=== PATIENT | male | born 1990 | race Two or more races ===

== ENCOUNTER 2017-02-28 07:16 | Inpatient (IN) | payer MEDICAID, OTHER ==
[2017-02-28] MEDS ORDERED: NS 1,000 ML IV ONE ×2 (07:19→10:15)
[2017-02-28] MEDS ORDERED: ONDANSETRON 4 MG/2 ML VIAL IVP ONE (07:19)
[2017-02-28] MEDS ORDERED: HYDROmorphONE/DILAUDID 1 MG/ML SYR IVP ONE (07:19)
[2017-02-28 07:29] LABS: % IMMATURE GRANULYOCYTES 0.6 % (0.0-1.1); ABSOLUTE IMMATURE GRANULOCYTES 0.15 10^3/uL (0.00-0.10); ADD DIFF? NO; ADD MORPH? NO; ADD SCAN? NO; ATYPICAL LYMPHOCYTE FLAG 0 (0-99); FRAGMENT RBC FLAG 0 (0-99); HEMATOCRIT 42.4 % (40.0-51.0); HEMOGLOBIN 14.6 g/dL (13.7-17.5); LEFT SHIFT FLG 20 (0-99); LIPEMIA HEMOLYSIS FLAG 90 (0-99); MEAN CELL HEMOGLOBIN 30.9 pg (27.9-34.1); MEAN CELL HEMOGLOBIN CONCENTR. 34.4 g/dL (32.4-36.7); MEAN CELL VOLUME 89.6 fL (81.5-99.8); MEAN PLATELET VOLUME 9.3 fL (8.7-11.7); PLATELET CLUMPS FLAG 0 (0-99); PLATELET COUNT 288 10^3/uL (150-400); RED BLOOD CELL COUNT 4.73 10^6/uL (4.40-6.38); RED CELL DISTRIBUTION WIDTH 13.3 % (11.5-15.2)
[2017-02-28] MEDS ORDERED: IOPAMIDOL (ISOVUE-300) 100 ML BTL ONE (07:42)
[2017-02-28 08:18] LABS: ALANINE AMINOTRANSFERASE 76 IU/L (21-72); ALBUMIN 4.2 g/dL (3.5-5.0); ALKALINE PHOSPHATASE 83 IU/L (38-126); ANION GAP 14 mEq/L (8-16); ASPARTATE AMINOTRANSFERASE 39 IU/L (17-59); BILIRUBIN-CONJUGATED 0.4 mg/dL (0.0-0.5); BILIRUBIN-UNCONJUGATED 0.6 mg/dL (0.0-1.1); CALCIUM 10.4 mg/dL (8.5-10.4); CARBON DIOXIDE 21 mEq/l (22-31); CHLORIDE 104 mEq/L (97-110); CREATININE 0.9 mg/dL (0.7-1.3); GLOMERULAR FILTRATION RATE > 60; GLUCOSE 88 mg/dL (70-100); POTASSIUM 4.2 mEq/L (3.5-5.2); SODIUM 139 mEq/L (134-144); TOTAL PROTEIN 6.9 g/dL (6.3-8.2)
--- NOTE | 2017-02-28 08:55 | EDPHY ---
H & P Time Seen by Provider: 02/28/17 07:19 HPI/ROS: HPI Lower abdominal pain. 26-year-old male by ambulance from skilled nursing. He complains of worsening left lower quadrant abdominal pain x2 days. Significantly worse this morning. Describes it as sharp and burning. No radiation. Bowel movement, earlier this morning normal. No bloody or melenic stool. No diarrhea. He has had nausea but no vomiting. No prior abdominal surgical history. ROS: Constitutional: No fever, no chills. No weakness. Eyes: No discharge. No changes in vision. ENT: No sore throat. No nasal congestion or rhinorrhea. Respiratory: No cough. No shortness of breath. Cardiac: No chest pain, no palpitations. Gastrointestinal: As above. Genitourinary: No hematuria. No dysuria or increased frequency with urination. Musculoskeletal: No back pain. No neck pain. No myalgias or arthralgias. Skin: No rashes. Neurological: No headache. No focal weakness or altered sensation. Past medical history: Mood disorder, hernia repair, hand tendon repair. Social history: Smoker. History of substance abuse. Here from skilled nursing. Physical Exam: General Appearance: Alert, appears uncomfortable. This patient is responding to questions appropriately and in full sentences. This patient appears well- hydrated and well-nourished. Eyes: Pupils equal and round no pallor or injection. No lid edema, erythema or injection. Respiratory: There are no retractions, lungs are clear to auscultation with good air movement bilaterally. Cardiovascular: Regular rate and rhythm. No murmur. Gastrointestinal: Abdomen significant for left lower quadrant abdominal pain on palpation with voluntary guarding on exam, no masses, bowel sounds normal. No focal tenderness at McBurney's point. No Bhakta sign. Testicular exam: Normal testicular lie. No evidence of torsion clinically. No lesions. Neurological: Motor sensory function is grossly intact. Cranial nerves are normal. Gait is normal. Skin: Warm and dry, no rashes. Musculoskeletal: Neck is supple and nontender. Extremities are symmetrical. All joints range without pain or impingement. Psychiatric: No agitation. No depression. Database: EKG: Imaging: CT of abdomen and pelvis with IV contrast: Significant for an ileus as well as colitis and enteritis. No abscess. No free air. Results discussed with staff radiologist Dr. Keagan Montanez. Procedures: Emergency department course: IV placed. He was placed on a monitor. He was started on IV normal saline with 1 L to be given over the next hour. He was initially given 0.5 mg of IV hydromorphone and 4 mg of IV Zofran. He will be sent for CT imaging to evaluate for volvulus verses diverticulitis. 10:15 a.m., patient re-evaluated. He has declined pain medications as above. He still appears uncomfortable. Results of laboratory work and CT scan discussed. Diagnosis discussed with the patient and his supervising superintendent police. Plan for admission reviewed. 10:20 a.m., spoke with hospitalist. Case discussed in detail. Dr. Lopez accepts this patient for admission to the hospitalist service. Patient admitted in stable condition. Antibiotic administration will be deferred to the hospitalist service. They wish to evaluate him for antibiotics are started. Patient admitted to the hospitalist service in stable condition. Differential Diagnosis: The differential diagnosis on this patient includes but is not limited to diverticulitis, cecal volvulus, sigmoid volvulus. This represents a partial list of diagnoses considered. These considerations are based on history, physical exam, past history, reassessment and diagnostic testing. Smoking Status: Never smoked Constitutional: Initial Vital Signs Temperature (C) 37.5 C 02/28/17 07:25 Heart Rate 110 H 02/28/17 07:25 Respiratory Rate 18 02/28/17 07:25 Blood Pressure 124/83 H 02/28/17 07:25 O2 Sat (%) 95 02/28/17 07:25 O2 Delivery Mode Room Air Allergies/Adverse Reactions: olive extract Allergy (Verified 02/28/17 07:24) Penicillins Allergy (Verified 10/18/15 15:16) reishi mushroom [mushrooms] Allergy (Verified 02/28/17 07:24) Home Medications: Medication Instructions Recorded Ziprasidone HCl [Geodon 40MG (RX)] 10/18/15 Gabapentin 02/28/17 Wellbutrin Xl 02/28/17 traMADol 02/28/17 Medical Decision Making - Diagnostics Imaging Results: Imaging Impressions Abdomen CT 02/28/17 07:19 Impression: 1. Findings suspicious for mild enteritis and colitis associated with the descending and sigmoid colons. 2. No CT evidence of appendicitis, abscess or bowel obstruction. - Data Points Laboratory Results: Laboratory Results 02/28/17 07:16 02/28/17 07:16 02/28/17 02/28/17 07:16 07:16 WBC 24.06 10^3/uL H 10^3/uL (3.80-9.50) RBC 4.73 10^6/uL 10^6/uL (4.40-6.38) Hgb 14.6 g/dL g/dL (13.7-17.5) Hct 42.4 % % (40.0-51.0) MCV 89.6 fL fL (81.5-99.8) MCH 30.9 pg pg (27.9-34.1) MCHC 34.4 g/dL g/dL (32.4-36.7) RDW 13.3 % % (11.5-15.2) Plt Count 288 10^3/uL 10^3/uL (150-400) MPV 9.3 fL fL (8.7-11.7) Neut % (Auto) 89.4 % H % (39.3-74.2) Lymph % (Auto) 3.1 % L % (15.0-45.0) Rice % (Auto) 6.4 % % (4.5-13.0) Eos % (Auto) 0.2 % L % (0.6-7.6) Baso % (Auto) 0.3 % % (0.3-1.7) Nucleat RBC Rel Count 0.0 % % (0.0-0.2) Absolute Neuts (auto) 21.48 10^3/uL H 10^3/uL (1.70-6.50) Absolute Lymphs (auto) 0.75 10^3/uL L 10^3/uL (1.00-3.00) Absolute Monos (auto) 1.55 10^3/uL H 10^3/uL (0.30-0.80) Absolute Eos (auto) 0.06 10^3/uL 10^3/uL (0.03-0.40) Absolute Basos (auto) 0.07 10^3/uL 10^3/uL (0.02-0.10) Absolute Nucleated RBC 0.00 10^3/uL 10^3/uL (0-0.01) Immature Gran % 0.6 % % (0.0-1.1) Immature Gran # 0.15 10^3/uL H 10^3/uL (0.00-0.10) Sodium 139 mEq/L mEq/L (134-144) Potassium 4.2 mEq/L mEq/L (3.5-5.2) Chloride 104 mEq/L mEq/L (97-110) Carbon Dioxide 21 mEq/l L mEq/l (22-31) Anion Gap 14 mEq/L mEq/L (8-16) BUN 9 mg/dL mg/dL (7-23) Creatinine 0.9 mg/dL mg/dL (0.7-1.3) Estimated GFR > 60 Glucose 88 mg/dL mg/dL (70-100) Calcium 10.4 mg/dL mg/dL (8.5-10.4) Total Bilirubin 1.0 mg/dL mg/dL (0.1-1.4) Conjugated Bilirubin 0.4 mg/dL mg/dL (0.0-0.5) Unconjugated Bilirubin 0.6 mg/dL mg/dL (0.0-1.1) AST 39 IU/L IU/L (17-59) ALT 76 IU/L H IU/L (21-72) Alkaline Phosphatase 83 IU/L IU/L (38-126) Total Protein 6.9 g/dL g/dL (6.3-8.2) Albumin 4.2 g/dL g/dL (3.5-5.0) Lipase 59.0 IU/L IU/L (23-300) Medications Given: Discontinued Medications Hydromorphone HCl (Dilaudid) 0.5 mg IVP EDNOW ONE Stop: 02/28/17 07:20 Last Admin: 02/28/17 07:45 Dose: Not Given Sodium Chloride (Ns) 1,000 mls @ 0 mls/hr IV EDNOW ONE; Wide Open PRN Reason: Protocol Stop: 02/28/17 07:20 Last Admin: 02/28/17 07:50 Dose: 1,000 mls Sodium Chloride (Ns) 1,000 mls @ 0 mls/hr IV ONCE ONE PRN Reason: Wide Open Stop: 02/28/17 10:16 Last Admin: 02/28/17 10:16 Dose: 1,000 mls Ondansetron HCl (Zofran) 4 mg IVP EDNOW ONE Stop: 02/28/17 07:20 Last Admin: 02/28/17 07:51 Dose: 4 mg Departure - Departure Disposition: [facility] Inpatient Acute Clinical Impression: Lower abdominal pain, Colitis, Enteritis, Leukocytosis Referrals: Patient,NotPresent [Unknown] - As per Instructions
[2017-02-28 11:32] LABS: COLOR PALE YELLOW; LEUKOCYTE ESTERASE,URINE NEGATIVE (NEGATIVE); NITRITE,URINE NEGATIVE (NEGATIVE)
[2017-02-28 11:37] LABS: RBC,URINE NONE SEEN /hpf (0-3); WBC,URINE NONE SEEN /hpf (0-3)
[2017-02-28] MEDS: HYDROmorphONE/DILAUDID 1 MG/ML SYR IVP PRN ×3 (12:45→20:13)
[2017-02-28] MEDS ORDERED: ACETAMINOPHEN 325 MG TAB PO PRN (12:56)
[2017-02-28] MEDS ORDERED: HYDROmorphONE/DILAUDID 1 MG/ML SYR ONE (13:12)
--- NOTE | 2017-02-28 13:31 | PDGENHP ---
History and Physical - Chief Complaint abd pain - History of Present Illness 26 yo incarcerated male p/w worsening LLQ abd pain. He reports intermittent abd pain for several months. Worse over the past 2 months. Tactile fevers. Some nausea, no emesis. Lots of LLQ pain. Labs in the ED are c/w WBC 24.6, otherwise unremarkable. CTA Abd showes descending/sigmoid colon enteritis. UA is negative. Denies any resp sxs, urinary sx, rash, cv sx.. +BM yesterday Passing gas. He is not the best historian. PMHx: mood disorder, frequent incarceration, Hernia repair, Hand tendon repair, polysubstance abuse Soc: has not smoked in 15 days, no ETOH, no illicits FmHx: he does not know All: anaphylaxis to PCN History Information - Allergies/Home Medication List Allergies/Adverse Reactions: olive extract Allergy (Verified 02/28/17 07:24) Penicillins Allergy (Verified 10/18/15 15:16) reishi mushroom [mushrooms] Allergy (Verified 02/28/17 07:24) Home Medications: Acetaminophen [Tylenol ES 500 mg (*)] 1,000 mg PO BID PRN 02/28/17 [Last Taken 02/27/17] Gabapentin [Neurontin 300 MG (*)] 300 mg PO BID 02/28/17 [Last Taken 02/27/17] Ibuprofen [Motrin (*)] 800 mg PO BID PRN 02/28/17 [Last Taken 02/27/17] Ziprasidone HCl [Geodon 40MG (*)] 40 mg PO BID 02/28/17 [Last Taken 02/27/17] buPROPion [Wellbutrin] 100 mg PO BID@0730,1400 02/28/17 [Last Taken 02/27/17] I have personally reviewed and updated: family history, medical history, social history - Social History Smoking Status: Never smoked Review of Systems ROS: 10pt was reviewed & negative except for what was stated in HPI & below Physical Exam Temp Pulse Resp BP Pulse Ox 38.3 C 108 H 12 119/79 98 02/28/17 12:01 02/28/17 12:01 02/28/17 12:01 02/28/17 12:01 02/28/17 12:01 Constitutional: no apparent distress, appears nourished, not in pain Eyes: PERRL, EOMI Ears, Nose, Mouth, Throat: dry mucous membranes Cardiovascular: regular rate and rhythym, no murmur, rub, or gallop, No JVD Respiratory: no respiratory distress, no rales or rhonchi, clear to auscultation Gastrointestinal: normoactive bowel sounds, tenderness, guarding (mild), No ascites, No hendricks's sign, No rebound, No distension Skin: warm Neurologic: AAOx3 Psychiatric: interacting appropriately, anxious Lab Data & Imaging Review 02/28/17 07:16 02/28/17 07:16 WBC 24.06 10^3/uL (3.80-9.50) H 02/28/17 07:16 RBC 4.73 10^6/uL (4.40-6.38) 02/28/17 07:16 Hgb 14.6 g/dL (13.7-17.5) 02/28/17 07:16 Hct 42.4 % (40.0-51.0) 02/28/17 07:16 MCV 89.6 fL (81.5-99.8) 02/28/17 07:16 MCH 30.9 pg (27.9-34.1) 02/28/17 07:16 MCHC 34.4 g/dL (32.4-36.7) 02/28/17 07:16 RDW 13.3 % (11.5-15.2) 02/28/17 07:16 Plt Count 288 10^3/uL (150-400) 02/28/17 07:16 MPV 9.3 fL (8.7-11.7) 02/28/17 07:16 Neut % (Auto) 89.4 % (39.3-74.2) H 02/28/17 07:16 Lymph % (Auto) 3.1 % (15.0-45.0) L 02/28/17 07:16 [place]eves % (Auto) 6.4 % (4.5-13.0) 02/28/17 07:16 Eos % (Auto) 0.2 % (0.6-7.6) L 02/28/17 07:16 Baso % (Auto) 0.3 % (0.3-1.7) 02/28/17 07:16 Nucleat RBC Rel Count 0.0 % (0.0-0.2) 02/28/17 07:16 Absolute Neuts (auto) 21.48 10^3/uL (1.70-6.50) H 02/28/17 07:16 Absolute Lymphs (auto) 0.75 10^3/uL (1.00-3.00) L 02/28/17 07:16 Absolute Monos (auto) 1.55 10^3/uL (0.30-0.80) H 02/28/17 07:16 Absolute Eos (auto) 0.06 10^3/uL (0.03-0.40) 02/28/17 07:16 Absolute Basos (auto) 0.07 10^3/uL (0.02-0.10) 02/28/17 07:16 Absolute Nucleated RBC 0.00 10^3/uL (0-0.01) 02/28/17 07:16 Immature Gran % 0.6 % (0.0-1.1) 02/28/17 07:16 Immature Gran # 0.15 10^3/uL (0.00-0.10) H 02/28/17 07:16 Sodium 139 mEq/L (134-144) 02/28/17 07:16 Potassium 4.2 mEq/L (3.5-5.2) 02/28/17 07:16 Chloride 104 mEq/L (97-110) 02/28/17 07:16 Carbon Dioxide 21 mEq/l (22-31) L 02/28/17 07:16 Anion Gap 14 mEq/L (8-16) 02/28/17 07:16 BUN 9 mg/dL (7-23) 02/28/17 07:16 Creatinine 0.9 mg/dL (0.7-1.3) 02/28/17 07:16 Estimated GFR > 60 02/28/17 07:16 Glucose 88 mg/dL (70-100) 02/28/17 07:16 Calcium 10.4 mg/dL (8.5-10.4) 02/28/17 07:16 Total Bilirubin 1.0 mg/dL (0.1-1.4) 02/28/17 07:16 Conjugated Bilirubin 0.4 mg/dL (0.0-0.5) 02/28/17 07:16 Unconjugated Bilirubin 0.6 mg/dL (0.0-1.1) 02/28/17 07:16 AST 39 IU/L (17-59) 02/28/17 07:16 ALT 76 IU/L (21-72) H 02/28/17 07:16 Alkaline Phosphatase 83 IU/L (38-126) 02/28/17 07:16 Total Protein 6.9 g/dL (6.3-8.2) 02/28/17 07:16 Albumin 4.2 g/dL (3.5-5.0) 02/28/17 07:16 Lipase 59.0 IU/L (23-300) 02/28/17 07:16 Urine Color PALE YELLOW 02/28/17 11:20 Urine Appearance CLEAR 02/28/17 11:20 Urine pH 7.0 (5.0-7.5) 02/28/17 11:20 Ur Specific [place] 1.018 (1.002-1.030) 02/28/17 11:20 Urine Protein NEGATIVE (NEGATIVE) 02/28/17 11:20 Urine Ketones NEGATIVE (NEGATIVE) 02/28/17 11:20 Urine Blood NEGATIVE (NEGATIVE) 02/28/17 11:20 Urine Nitrate NEGATIVE (NEGATIVE) 02/28/17 11:20 Urine Bilirubin NEGATIVE (NEGATIVE) 02/28/17 11:20 Urine Urobilinogen NEGATIVE EU (0.2-1.0) 02/28/17 11:20 Ur Leukocyte Esterase NEGATIVE (NEGATIVE) 02/28/17 11:20 Urine RBC NONE SEEN /hpf (0-3) 02/28/17 11:20 Urine WBC NONE SEEN /hpf (0-3) 02/28/17 11:20 Ur Epithelial Cells NONE SEEN /lpf (NONE-1+) 02/28/17 11:20 Urine Glucose NEGATIVE (NEGATIVE) 02/28/17 11:20 Assessment & Plan Assessment: #Left sided Colitis -Invanz #Nausea -Protonix -Benadryl #Fever #Abd Pain #Mood disorder Plan: Admit IVF Abx: Invanz given his allergy to PCN. He triggered sepsis alert due to slight fever, tachycardia, and elevated WBC. Labs are pending. Bcx are pending We will await therapeutic response to the above regime prior to consideration of GI consultation. CT Abd reviewed, no signs of perforation, abscess, or obstruction We are limited with abx due to PCN anaphylasix and due to possible QT prolongation. We are limited with antiemetics due to concern for QT prolongation while on Geodon. Will check a baseline EKG. SCD's for DVT proph Resume home meds Ativan for anxiety PRN Imaging: CT Abd: enteritis/colitis descending and sigmoid colon UA: unremarkable
[2017-02-28] MEDS ORDERED: LORazepam 0.5 MG TAB PO PRN (13:38)
[2017-02-28 14:12] LABS: % IMMATURE GRANULYOCYTES 0.7 % (0.0-1.1); ADD DIFF? NO; ADD MORPH? NO; ADD SCAN? NO; ATYPICAL LYMPHOCYTE FLAG 0 (0-99); FRAGMENT RBC FLAG 0 (0-99); HEMATOCRIT 41.8 % (40.0-51.0); HEMOGLOBIN 14.3 g/dL (13.7-17.5); LEFT SHIFT FLG 30 (0-99); LIPEMIA HEMOLYSIS FLAG 90 (0-99); MEAN CELL HEMOGLOBIN 30.6 pg (27.9-34.1); MEAN CELL HEMOGLOBIN CONCENTR. 34.2 g/dL (32.4-36.7); MEAN CELL VOLUME 89.3 fL (81.5-99.8); MEAN PLATELET VOLUME 9.8 fL (8.7-11.7); PLATELET CLUMPS FLAG 0 (0-99); PLATELET COUNT 297 10^3/uL (150-400); RED BLOOD CELL COUNT 4.68 10^6/uL (4.40-6.38); RED CELL DISTRIBUTION WIDTH 13.3 % (11.5-15.2)
[2017-02-28 14:18] LABS: PROTIME(PATIENT) 13.1 SEC (12.0-15.0)
[2017-02-28 14:19] LABS: APTT 24.5 SEC (23.0-38.0)
[2017-02-28] MEDS: buPROPion 100 MG TAB PO SCH (14:34)
[2017-02-28] MEDS: NS 1,000 ML IV SCH (14:39)
[2017-02-28] MEDS: ERTAPENEM 1 GM in NS 100 ML IV SCH (14:46)
[2017-02-28 15:35] LABS: PROCALCITONIN 0.75 ng/mL (0.02-0.10)
[2017-02-28 15:53] LABS: ANION GAP 15 mEq/L (8-16); BILIRUBIN,TOTAL 1.9 mg/dL (0.1-1.4); C-REACTIVE PROTEIN 45.9 mg/L (<10.0); CALCIUM 10.1 mg/dL (8.5-10.4); CARBON DIOXIDE 18 mEq/l (22-31); CHLORIDE 104 mEq/L (97-110); CREATININE 0.9 mg/dL (0.7-1.3); GLOMERULAR FILTRATION RATE > 60; GLUCOSE 77 mg/dL (70-100); POTASSIUM 3.6 mEq/L (3.5-5.2); SODIUM 137 mEq/L (134-144)
--- NOTE | 2017-02-28 16:34 | CPEKG ---
Heart Rate: 89 RR Interval: 674 P-R Interval: 136 QRSD Interval: 98 QT Interval: 344 QTC Interval: 419 P Nemours: 73 QRS Nemours: 136 T Wave Nemours: 54 EKG Severity - OTHERWISE NORMAL ECG - EKG Impression: SINUS RHYTHM EKG Impression: RIGHT AXIS DEVIATION EKG Impression: AGREE WITH ABOVE Electronically Signed By: Sb Anderson 01-Mar-2017 06:55:29
[2017-02-28] MEDS: PANTOPRAZOLE SODIUM 40 MG in NS 100 ML IV SCH ×2 (16:36→21:29)
[2017-02-28] MEDS: ZIPRASIDONE HCL 40 MG CAP PO SCH (20:14)
[2017-02-28] MEDS: GABAPENTIN 300 MG CAP PO SCH (21:29)
[2017-03-01] MEDS: HYDROmorphONE/DILAUDID 1 MG/ML SYR IVP PRN ×3 (00:02→08:18)
[2017-03-01] MEDS: NS 1,000 ML IV SCH (00:03)
[2017-03-01 04:59] LABS: ANION GAP 11 mEq/L (8-16); CARBON DIOXIDE 22 mEq/l (22-31); CHLORIDE 110 mEq/L (97-110); GLOMERULAR FILTRATION RATE > 60; GLUCOSE 67 mg/dL (70-100); POTASSIUM 4.4 mEq/L (3.5-5.2); SODIUM 143 mEq/L (134-144)
[2017-03-01 05:34] LABS: HIGHLY SENSITIVE CRP > 15.0 mg/L
[2017-03-01] MEDS: ERTAPENEM 1 GM in NS 100 ML IV SCH (08:08)
[2017-03-01] MEDS: PANTOPRAZOLE SODIUM 40 MG in NS 100 ML IV SCH ×2 (08:08→22:01)
[2017-03-01] MEDS: ZIPRASIDONE HCL 40 MG CAP PO SCH ×2 (08:08→22:01)
[2017-03-01] MEDS: GABAPENTIN 300 MG CAP PO SCH ×2 (08:08→19:58)
[2017-03-01] MEDS: buPROPion 100 MG TAB PO SCH ×2 (08:09→16:48)
[2017-03-01 12:51] LABS: CHLAMYDIA AMPLIFICATION GENPRB NEGATIVE (NEGATIVE)
--- NOTE | 2017-03-01 14:39 | HOSPPROG ---
Hospitalist Progress Note Assessment/Plan: 26y male from long-term. C/O abd pain and diarrhea. D/W Dr Lopez. #Left sided Colitis -per CT -Invanz -advance diet -consider GI consult if not improving #Leukocytosis -check labs in am -acute response #Nausea -Protonix -resolved #Fever resolved #Sepsis -resolved -BC pending #Abd Pain -improved #Mood disorder -at baseline #Hx H.Pylori -obtain records from [facility] -serum h. pylori positive, check a stool antigen. -Consider GI consult for medication recs if positive. PCN allergy #Dispo -return to custodial when better Plan: Advance diet Abx: Invanz given his allergy to PCN. We are limited with abx due to PCN anaphylasix and due to possible QT prolongation. We are limited with antiemetics due to concern for QT prolongation while on Geodon. Will check a baseline EKG. SCD's for DVT proph Resume home meds Ativan for anxiety PRN Subjective: Feeling better. Hungry. No abd pain. No other issues. Objective: Vital Signs Temp Pulse Resp BP Pulse Ox 36.9 C 91 14 93/60 L 97 03/01/17 07:16 03/01/17 07:16 03/01/17 07:16 03/01/17 07:16 03/01/17 07:16 Laboratory Results 02/28/17 13:25 03/01/17 04:13 02/28/17 03/01/17 03/02/17 05:59 05:59 05:59 Intake Total 2000 Output Total 1700 Balance 300 PT 13.1 SEC (12.0-15.0) 02/28/17 13:25 INR 1.00 (0.83-1.16) 02/28/17 13:25 - Physical Exam Constitutional: not in pain, chronically ill appearing, cachectic Eyes: PERRL, anicteric sclera, EOMI Ears, Nose, Mouth, Throat: moist mucous membranes, hearing normal, ears appear normal Cardiovascular: regular rate and rhythym, No JVD, No bradycardia, No edema Respiratory: no respiratory distress, no rales or rhonchi, reduced air movement Gastrointestinal: normoactive bowel sounds, No tenderness, No ascites Skin: warm, normal color, No erythema Musculoskeletal: no joint effusions, muscular tenderness, generalized weakness Neurologic: AAOx3 Psychiatric: interacting appropriately, not anxious, not encephalopathic ICD10 Worksheet Patient Problems: Problems Problem Status Onset Lower abdominal pain Acute Colitis Acute Enteritis Acute Leukocytosis Acute
[2017-03-01] MEDS: OXYCODONE/APAP 5/325 TAB PO PRN ×3 (16:51→23:59)
[2017-03-02 05:18] LABS: HEMATOCRIT 39.4 % (40.0-51.0); HEMOGLOBIN 13.4 g/dL (13.7-17.5); MEAN CELL HEMOGLOBIN 30.9 pg (27.9-34.1); RED BLOOD CELL COUNT 4.33 10^6/uL (4.40-6.38); RED CELL DISTRIBUTION WIDTH 13.7 % (11.5-15.2)
[2017-03-02] MEDS: OXYCODONE/APAP 5/325 TAB PO PRN ×2 (06:29→20:59)
[2017-03-02] MEDS: PANTOPRAZOLE SODIUM 40 MG in NS 100 ML IV SCH ×2 (07:36→20:58)
[2017-03-02] MEDS ORDERED: ONDANSETRON 4 MG/2 ML VIAL IVP PRN (09:44)
[2017-03-02] MEDS: ERTAPENEM 1 GM in NS 100 ML IV SCH (10:09)
[2017-03-02] MEDS: GABAPENTIN 300 MG CAP PO SCH ×2 (10:15→20:58)
[2017-03-02] MEDS: ZIPRASIDONE HCL 40 MG CAP PO SCH ×2 (10:15→20:58)
[2017-03-02] MEDS: buPROPion 100 MG TAB PO SCH ×2 (10:15→16:18)
--- NOTE | 2017-03-02 11:07 | HOSPPROG ---
Hospitalist Progress Note Assessment/Plan: # colitis/enteritis - check GI pathogen panel - cont invanz # leukocytosis, resolved today # H. pylori ab+ - stool ag pending # nausea - persists today - zofran (QT normal) # mood d/o - stable - geodon # sepsis - resolved Subjective: nausea, emesis x 2 today; Objective: Vital Signs Temp Pulse Resp BP Pulse Ox 36.4 C 58 L 12 106/76 95 03/02/17 07:14 03/02/17 07:14 03/02/17 07:14 03/02/17 07:14 03/02/17 07:14 Laboratory Results 03/02/17 04:16 03/01/17 03/02/17 03/03/17 05:59 05:59 05:59 Intake Total 1050 Balance 1050 PT 13.1 SEC (12.0-15.0) 02/28/17 13:25 INR 1.00 (0.83-1.16) 02/28/17 13:25 chart reviewed; CT abd reviewe - Physical Exam Constitutional: no apparent distress, appears nourished Cardiovascular: regular rate and rhythym, no murmur, rub, or gallop Respiratory: no respiratory distress, no rales or rhonchi, clear to auscultation Gastrointestinal: other (diminished BS; soft, mildly TTP bilat lower quadrants) ICD10 Worksheet Patient Problems: Problems Problem Status Onset Colitis Acute Enteritis Acute Leukocytosis Acute Lower abdominal pain Acute
[2017-03-02] MEDS: VANCOMYCIN 125 MG/2.5 ML UDL PO SCH ×2 (16:18→20:58)
[2017-03-03] MEDS: VANCOMYCIN 125 MG/2.5 ML UDL PO SCH ×2 (06:20→13:01)
[2017-03-03] MEDS: buPROPion 100 MG TAB PO SCH ×2 (06:20→13:01)
[2017-03-03] MEDS: ERTAPENEM 1 GM in NS 100 ML IV SCH (08:18)
[2017-03-03] MEDS: PANTOPRAZOLE SODIUM 40 MG in NS 100 ML IV SCH (08:18)
[2017-03-03] MEDS: GABAPENTIN 300 MG CAP PO SCH (08:19)
[2017-03-03] MEDS: ZIPRASIDONE HCL 40 MG CAP PO SCH (08:19)
[2017-03-03 08:22] VITALS: BP 118/73; PULSE 79; RESP 16; TEMP 97.1; O2SAT 97
--- NOTE | 2017-03-03 22:07 | GDS ---
[f rep st] DISCHARGE SUMMARY ALL DIAGNOSES: 1. Acute Clostridium difficile colitis. 2. H pylori antibody positive stool antigen pending. 3. Marked leukocytosis. 4. Nausea. 5. Mood disorder. 6. Sepsis due to Clostridium difficile colitis. HOSPITAL COURSE: A 26-year-old man presented with abdominal pain and diarrhea. He had colitis, as well as mild enteritis seen on CT scan. GI panel was positive for C difficile. He was initially tr eated with Invanz with actually improvement in his symptoms. After getting positive C difficile, he has been transitioned to Flagyl. I have given him a prescription to complete a 10 day course of th is. He notes that he has had significant difficulties with his left hand after a dog attack 2-1/2 weeks ago. He was seen at [place] for this. He has difficulty with numbness in his left hand, as well a s decreased motor function. I confirmed with the [facility] that he has plans to follow up with hand surg dari. I think that this is reasonable. He was treated with antibiotics after the dog bite, and ther e is no evidence of infection. I am concerned that he has a neurologic injury, however. BILLING: I spent more than 30 minutes on the day of discharge coordinating care. /[id number]/MODL
== END 2017-03-03 14:30 | DRG 872 ==
LOC: EDUNIT# → F3N 11:58 → OBSVTOIN 03-01 14:57
PROVIDERS: ADMIT Family Medicine; ATTEND Family Medicine
DX: A41.89 Other specified sepsis (principal); A04.7 Enterocolitis due to Clostridium difficile; B96.81 Helicobacter pylori [H. pylori] as the cause of diseases classified elsewhere; F39 Unspecified mood [affective] disorder; Z88.0 Allergy status to penicillin
CPT/HCPCS: 86141-90; 87338-90; 96374; G0378; G0472; J1170; J1335; J2405; Q9967